=== PATIENT | male | born 1995 | race Caucasian/White ===

== ENCOUNTER → 2023-09-18 13:01 | Outpatient (CLI) | payer OTHER, SELFPAY ==
--- NOTE | 2023-09-18 13:04 | DI.RAD.S_ITS ---
PROCEDURE: XR SHOULDER LT MIN 2V INDICATIONS: Ground level fall, L I TECHNIQUE: 3 views of the shoulder were acquired. COMPARISON: None. FINDINGS: Bones: No fractures or dislocations. No suspicious bony lesions. Visualized ribs appear intact. Coracoclavicular and acromioclavicular intervals are maintained. Soft tissues: No suspicious soft tissue calcifications. IMPRESSION: Left shoulder without acute fracture or dislocation. If there is persistent clinical concern for occult fracture given adequate mechanism of injury, consider repeat imaging in 10-14 days. Dictated by: Bret Owen M.D. on 09/18/2023 at 16:14 Approved by: Bret Owen M.D. on 09/18/2023 at 16:15
--- NOTE | 2023-09-18 13:04 | DI.RAD.S_ITS ---
PROCEDURE: XR RIBS LT MIN 3V W CXR1V INDICATIONS: Ground level fall, L and I TECHNIQUE: 4 views of the left ribs were acquired, along with a single view chest. COMPARISON: None. FINDINGS: Surgical changes and devices: None. Bones and chest wall: No fractures or dislocations. No suspicious bony lesions. Overlying soft tissues appear unremarkable. Lungs and pleura: No pleural effusions or pneumothorax. Lungs appear clear. Mediastinum: Mediastinal contours appear normal. Heart size is normal. IMPRESSION: No displaced rib fracture or pneumothorax. No acute cardiopulmonary abnormalities. Dictated by: Bret Owen M.D. on 09/18/2023 at 16:13 Approved by: Bret Owen M.D. on 09/18/2023 at 16:14
== END ==
PROVIDERS: PCP Nurse Practitioner; Referring Provider Nurse Practitioner Family; Visit Provider Nurse Practitioner Family
DX: W18.30XA Fall on same level, unspecified, initial encounter (principal); S20.212A Contusion of left front wall of thorax, initial encounter; S46.912A Strain of unspecified muscle, fascia and tendon at shoulder and upper arm level, left arm, initial encounter
CPT/HCPCS: 71101; 73030